=== PATIENT | male | born 1985 | race Caucasian/White ===

== ENCOUNTER 2016-06-18 21:58 | Emergency (ER) | payer SELFPAY ==
[~2016-06-18] VITALS: Ht 165.1 cm; Wt 52.2 kg
[~2016-06-18 21:58] MED LIST: AC325T PO; AMOX500C2 PO; BENZ100C8 PO; CEFU500T5 PO; CEPH500C PO; CPR500T PO; CYCL10TA9 PO; DOXY100C2 PO; HYDR-757 PO; IBP800T PO; LEVO500T69 PO; NAPR-243 PO; NAPR550T PO; ONDA4TAB8 PO; PRD20T PO; PRM25T PO; TRM50T PO
[2016-06-18] MEDS ORDERED: ASPIRIN 81 MG CHEW (CHILDREN'S ASA) PO ONE (23:00)
[2016-06-18 23:27] LABS: BASOPHILS % (AUTO) 0 % (0-10); EOSINOPHILS # (AUTO) 0.1 10^3/uL (0.0-0.3); EOSINOPHILS % (AUTO) 1 % (0-10); LYMPHOCYTES # (AUTO) 3.1 X 10^3 (1.0-4.0); LYMPHOCYTES % (AUTO) 32 % (12-44); MEAN CORPUSCULAR HEMOGLOBIN 30 PG (25-34); MEAN CORPUSCULAR HGB CONC 35 G/DL (32-36); MEAN CORPUSCULAR VOLUME 87 FL (80-99); MEAN PLATELET VOLUME 10.4 FL (7.4-10.4); MONOCYTES # (AUTO) 0.8 X 10^3 (0.0-1.0); MONOCYTES % (AUTO) 8 % (0-12); NEUTROPHILS # (AUTO) 5.6 X 10^3 (1.8-7.8); NEUTROPHILS % (AUTO) 58 % (42-75); PLATELET COUNT 144 10^3/uL (130-400); RED BLOOD COUNT 5.45 10^6/uL (4.35-5.85); RED CELL DISTRIBUTION WIDTH 14.4 % (10.0-14.5); WHITE BLOOD COUNT 9.6 10^3/uL (4.3-11.0)
[2016-06-18] MEDS ORDERED: KETOROLAC 30 MG/ML VIAL IVP ONE (23:45)
[2016-06-18 23:54] LABS: ALANINE AMINOTRANSFERASE 17 U/L (0-55); ALBUMIN 4.2 G/DL (3.2-4.5); ANION GAP 12 MMOL/L (5-14); ASPARTATE AMINO TRANSFERASE 25 U/L (5-34); BILIRUBIN,TOTAL 0.3 MG/DL (0.1-1.0); BLOOD UREA NITROGEN 20 MG/DL (7-18); BUN/CREATININE RATIO 25; CALCIUM 9.1 MG/DL (8.5-10.1); CARBON DIOXIDE 24 MMOL/L (21-32); CHLORIDE 105 MMOL/L (98-107); GFR ESTIMATED > 60; GLUCOSE 88 MG/DL (70-105); MAGNESIUM 2.6 MG/DL (1.8-2.4); POTASSIUM 3.7 MMOL/L (3.6-5.0); SODIUM 141 MMOL/L (135-145); TOTAL PROTEIN 7.3 G/DL (6.4-8.2)
[2016-06-19] LABS: MYOGLOBIN SERUM 30.3 NG/ML (10.0-92.0)
[2016-06-19] MEDS ORDERED: PRD20T PO (00:47)
--- NOTE | 2016-06-19 00:48 | ED Chest Pain ---
General Chief Complaint: Chest Pain Stated Complaint: CHEAT PAIN Nursing Triage Note: c/o left sided chest pain x 2 weeks. Denies fever, chills, soa, cough. Pt in no acute distress. Nursing Sepsis Screen: No Definite Risk Source: patient Exam Limitations: no limitations History of Present Illness Time seen by provider: 22:45 Initial Comments This 31-year-old gentleman presents to the emergency room with complaints of left central chest. Worsening over the past few weeks. It tends to happen only at home when he is at rest. 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 Pain is not worse with exertion and actually improves at work. He reports pain with deep inspiration. He denies any other symptoms such as cough or fever. He does smoke. Denies drug or alcohol use. Allergies and Home Medications Allergies Coded Allergies: No Known Drug Allergies (Unverified , 02/21/09) Home Medications Prednisone 20 Mg Tab #3 20 MG PO DAILY Prescribed by: JULIUS KIRBY on 06/19/16 0047 Review of Systems Constitutional: no symptoms reported EENTM: No Symptoms Reported Respiratory: See HPI Cardiovascular: No Symptoms Reported Gastrointestinal: No Symptoms Reported Genitourinary: No Symptoms Reported Musculoskeletal: see HPI Skin: no symptoms reported Psychiatric/Neurological: No Symptoms Reported Endocrine: No Symptoms Reported Past Shvbpcf-Yebzqh-Wryzjm Hx Patient Social History Alcohol Use: Denies Use Recreational Drug Use: No Smoking Status: Current Everyday Smoker Type Used: Cigarettes Recent Foreign Travel: No Contact w/Someone Who Travel: No Recent Infectious Disease Expo: No Recent Hopitalizations: No Immunizations Up To Date Date of Influenza Vaccine: Jan 29, 2013 Seasonal Allergies Seasonal Allergies: No Surgeries HX Surgeries: Yes (CRANIAL CORRECTIVE SURGERY--"BORN WITHOUT A SOFT SPOT") Respiratory Hx Respiratory Disorders: No Cardiovascular Hx Cardiac Disorders: No Neurological Hx Neurological Disorders: Yes Neurological Disorders: Headaches /Migraines Genitourinary Hx Genitourinary Disorders: No Gastrointestinal Hx Gastrointestinal Disorders: No Musculoskeletal Hx Musculoskeletal Disorders: No Endocrine Hx Endocrine Disorders: No HEENT HX ENT Disorders: No Cancer Hx Cancer: No Psychosocial Hx Psychiatric Problems: No Integumentary HX Skin/Integumentary Disorder: No Blood Transfusions Hx Blood Disorders: No Adverse Reaction to a Blood Tr: No Family Medical History Significant Family History: No Pertinent Family Hx (Adopted) Physical Exam Vital Signs Vital Sign - Last 12Hours 06/18/16 06/19/16 22:40 00:56 Temp 97.5 Pulse 86 Resp 16 B/P 136/92 Pulse Ox 98 O2 Delivery Room Air Capillary Refill : Less Than 3 Seconds General Appearance: No Apparent Distress WD/WN HEENT: PERRL/EOMI Normal ENT Inspection Neck: Normal Inspection Respiratory: No Accessory Muscle Use No Respiratory Distress Other (Left chest tenderness to palpation. 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 Norm as Tested Skin: Normal Color Warm/Dry Progress/Results/Core Measures Results/Orders Lab Results Laboratory Tests Test 06/18/16 23:18 Range/Units Activated Partial Thromboplast Time 26 24-35 SEC Alanine Aminotransferase (ALT/SGPT) 17 0-55 U/L Albumin 4.2 3.2-4.5 G/DL Alkaline Phosphatase 60 40-136 U/L Anion Gap 12 5-14 MMOL/L Aspartate Amino Transf (AST/SGOT) 25 5-34 U/L BUN/Creatinine Ratio 25 Basophils # (Auto) 0.0 0.0-0.1 10^3/uL Basophils (%) (Auto) 0 0-10 % Blood Urea Nitrogen 20 H 7-18 MG/DL C-Reactive Protein High Sensitivity 0.15 0.00-0.50 MG/DL Calcium Level 9.1 8.5-10.1 MG/DL Carbon Dioxide Level 24 21-32 MMOL/L Chloride Level 105 98-107 MMOL/L Creatinine 0.80 0.60-1.30 MG/DL Eosinophils # (Auto) 0.1 0.0-0.3 10^3/uL Eosinophils (%) (Auto) 1 0-10 % Erythrocyte Sedimentation Rate 1 0-15 MM/HR Estimat Glomerular Filtration Rate > 60 Glucose Level 88 70-105 MG/DL Hematocrit 47 40-54 % Hemoglobin 16.4 13.3-17.7 G/DL INR Comment 1.0 0.8-1.4 Lymphocytes # (Auto) 3.1 1.0-4.0 X 10^3 Lymphocytes (%) (Auto) 32 12-44 % Magnesium Level 2.6 H 1.8-2.4 MG/DL Mean Corpuscular Hemoglobin 30 25-34 PG Mean Corpuscular Hemoglobin Concent 35 32-36 G/DL Mean Corpuscular Volume 87 80-99 FL Mean Platelet Volume 10.4 7.4-10.4 FL Monocytes # (Auto) 0.8 0.0-1.0 X 10^3 Monocytes (%) (Auto) 8 0-12 % Myoglobin 30.3 10.0-92.0 NG/ML Neutrophils # (Auto) 5.6 1.8-7.8 X 10^3 Neutrophils (%) (Auto) 58 42-75 % Platelet Count 144 130-400 10^3/uL Potassium Level 3.7 3.6-5.0 MMOL/L Prothrombin Time 13.0 12.2-14.7 SEC Red Blood Count 5.45 4.35-5.85 10^6/uL Red Cell Distribution Width 14.4 10.0-14.5 % Sodium Level 141 135-145 MMOL/L Total Bilirubin 0.3 0.1-1.0 MG/DL Total Protein 7.3 6.4-8.2 G/DL Troponin I < 0.30 <0.30 NG/ML White Blood Count 9.6 4.3-11.0 10^3/uL My Orders Orders-JULIUS GENAO MD Ekg Tracing (06/18/16 22:45) Cbc With Automated Diff (06/18/16 22:57) Magnesium (06/18/16 22:57) Cardiac Profile 1 (06/18/16 22:57) Comprehensive Metabolic Panel (06/18/16 22:57) Myoglobin Serum (06/18/16 22:57) Protime With Inr (06/18/16 22:57) Partial Thromboplastin Time (06/18/16 22:57) O2 (06/18/16 22:57) Monitor-Rhythm Ecg Trace Only (06/18/16 22:57) Aspirin Chewable Tablet (Baby Aspirin Ch (06/18/16 23:00) Saline Lock/Iv-Start (06/18/16 22:57) Hs C Reactive Protein (06/18/16 22:57) Erythrocyte Sedimentation Rate (06/18/16 22:57) Chest Pa/Lat (2 View) (06/18/16 23:05) Ketorolac Injection (Toradol Injection) (06/18/16 23:45) Medications Given in ED Vital Signs/I&O Vital Sign - Last 12Hours 06/18/16 06/18/16 06/18/16 06/19/16 22:40 23:03 23:12 00:06 Temp 97.5 97.5 97.5 Pulse 86 Resp 16 B/P 136/92 O2 Delivery Room Air Room Air 06/19/16 00:56 Temp 97.5 Pulse 82 Resp 16 Pulse Ox 98 Blood Pressure Mean: 107 Progress Note : Progress Note Patient was treated with Toradol which improved his pain and he fell into a deep sleep. Workup was otherwise unremarkable. ECG Initial ECG Impression Date: Jun 18, 2016 Initial ECG Impression Time: 22:50 Initial ECG Rate: 66 Initial ECG Rhythm: Normal Sinus Comment Normal sinus rhythm. Borderline ST changes in numerous leads likely represents juvenile pattern. Does not meet criteria for pathologic ST elevation. No abnormal intervals or axis deviation. Diagnostic Imaging Diagonstic Imaging: Xray Plain Films/CT/US/NM/MRI: chest Comments Two-view chest x-ray viewed by me. Report not yet available. No acute abnormalities appreciated. Departure Impression Impression: Primary Impression: Atypical chest pain Additional Impression: Pleuritis Disposition: 01 HOME, SELF-CARE Condition: Improved Departure-Patient Inst. Decision time for Depature: 00:35 Referrals: [facility] (PCP/Family) Primary Care Physician Patient Instructions: Chest Pain That Is Not Caused by the Heart (DC), Pleuritic Chest Pain Add. Discharge Instructions: You may take ibuprofen up to 400 mg every 6 hours as needed for pain. Add Tylenol up to 650 mg every 4 hours as needed for additional pain relief. Follow -up with your primary care provider later this week. Return to care if symptoms worsen. All discharge instructions reviewed with patient and/or family. Voiced understanding. Scripts Prednisone 20 Mg Tab20 Mg PO DAILY #3 TAB Prov:JULIUS GENAO MD 06/19/16 JULIUS GENAO MD Jun 19, 2016 00:47
[2016-06-19 00:56] VITALS: BP 132/82
--- NOTE | 2016-06-19 07:23 | Diagnostic Imaging Report ---
INDICATION: Chest pain x2 weeks. Comparison with 07/07/2012. FINDINGS: The lungs are well-aerated and clear. The heart is not enlarged. No hilar adenopathy. No evidence of pneumothorax or pleural effusion. No bony abnormalities. IMPRESSION: Normal PA and lateral chest. Dictated by: Dictated on workstation # [id number]
== END 2016-06-19 00:56 | disposition home or self-care (01) ==
LOC: EDUNIT# 21:58 → ER 22:02
DX: R07.81 Pleurodynia (principal); F17.210 Nicotine dependence, cigarettes, uncomplicated
CPT/HCPCS: 36415; 71020; 80053; 83735; 83874; 84484; 85025; 85610; 85652; 85730; 86141; 93005; 93041; 96374

== ENCOUNTER 2017-09-03 18:15 | Emergency (ER) | payer SELFPAY ==
[~2017-09-03] VITALS: Ht 162.6 cm; Wt 50.3 kg
--- OUTSIDE RECORDS SUMMARY | 2017-09-03 18:22 | XMS REPORT ---
Author ALIYAH Garcia Organization [employer] Address Unknown Phone Unavailable Care Team Providers Care Qc Scientist Name Role Phone ALIYAH ARENAS CP Unavailable Allergies, Adverse Reactions, Alerts Substance Reaction Event Type Robitussin Cold/Congestion hives Drug Allergy Problems Problem Type Condition Code Onset Dates Condition Status Assessment Sinusitis J32.9 Active Medications Medication Code System Code Instructions Start Date End Date Status Dosage Amoxicillin [facility] [address]-36 500 MG Orally 3 times a day Mar 10, 2015 Mar 20, 2015 1 tablet Ibuprofen [facility] [address]-80 800 MG Orally Three times a day Mar 10, 2015 Apr 09, 2015 1 tablet Flonase [facility] [address]-27 50 MCG/ACT Nasally 2 times a day Mar 10, 2015 1 spray in each nostril Procedures Procedure Coding System Code Date Office Visit, New Pt., Level 3 CPT-4 21672 Mar 10, 2015 Vital Signs Date/Time: Mar 10, 2015 Temperature 98.2 F Weight 116.4 lbs Height 65 in BMI 19.37 Index Blood Pressure Diastolic 82 mmHg Blood Pressure Systolic 116 mmHg Cardiac Monitoring Heart Rate 102 bpm Results No Known Results Summary Purpose [employer] Submission
--- OUTSIDE RECORDS SUMMARY | 2017-09-03 18:23 | XMS REPORT | Continuity of Care Document ---
Author Author [facility] Organization [facility] Address Unknown Phone Unavailable Allergies Active Description Code Type Severity Reaction Onset Reported/Identified Relationship to Patient Clinical Status Yes No Known Drug Allergies [id number] Drug Allergy Mild N/A 02/21/2009 Medications There is no data. Problems Date Dx Coded Attending Type Code Diagnosis Diagnosed By 09/17/2009 Ot 847.2 09/17/2009 Ot 959.19 09/17/2009 Ot E000.8 09/17/2009 Ot E029.9 09/17/2009 Ot E927.8 04/25/2010 Ot 558.9 NONINF GASTROENTERIT NEC 04/25/2010 Ot 787.03 VOMITING ALONE 07/29/2010 Ot 465.9 ACUTE URI NOS 07/29/2010 Ot 786.2 COUGH 05/06/2011 Ot 490 BRONCHITIS NOS 05/06/2011 Ot 786.2 COUGH 08/06/2011 Ot 733.6 TIETZE'S DISEASE 08/06/2011 Ot 786.50 CHEST PAIN NOS 01/20/2012 Ot 692.9 DERMATITIS NOS 01/20/2012 Ot 782.1 NONSPECIF SKIN ERUPT NEC 07/07/2012 Ot 423.9 PERICARDIAL DISEASE NOS 07/07/2012 Ot 786.50 CHEST PAIN NOS 12/01/2012 PEDRO REYES DO Ot 599.0 URIN TRACT INFECTION NOS 12/01/2012 PEDRO REYES DO Ot 599.70 HEMATURIA, UNSPECIFIED 04/08/2013 RAEANN HARRISON Ot 346.90 MIGRAINE UNSPECIFIED W/O INTRACT MGRN W/ 04/08/2013 RAEANN HARRISON Ot 784.0 HEADACHE 09/10/2013 EDUARDO TANG EMD TEACHER Ot 724.2 LUMBAGO 08/24/2014 RAEANN HARRISON Ot 461.9 ACUTE SINUSITIS NOS 08/24/2014 RAEANN HARRISON Ot 786.2 COUGH 04/25/2015 BIRGIT GODINEZ, JULIUS Lynn Ot F17.210 NICOTINE DEPENDENCE, CIGARETTES, UNCOMPL 04/25/2015 BIRGIT GODINEZ, JULIUS Lynn Ot R11.2 NAUSEA WITH VOMITING, UNSPECIFIED 04/25/2015 BIRGIT GODINEZ, JULIUS Lynn Ot R51 HEADACHE 09/22/2015 RAEANN HARRISON Ot F17.210 NICOTINE DEPENDENCE, CIGARETTES, UNCOMPL 09/22/2015 RAEANN HARRISON Ot G43.909 MIGRAINE, UNSP, NOT INTRACTABLE, WITHOUT 09/23/2015 RAEANN HARRISON Ot G43.909 MIGRAINE, UNSP, NOT INTRACTABLE, WITHOUT 09/23/2015 RAEANN HARRISON Ot F17.210 NICOTINE DEPENDENCE, CIGARETTES, UNCOMPL 09/23/2015 RAEANN HARRISON Ot G43.909 MIGRAINE, UNSP, NOT INTRACTABLE, WITHOUT 09/28/2015 RAEANN HARRISON Ot F17.210 NICOTINE DEPENDENCE, CIGARETTES, UNCOMPL 09/28/2015 RAEANN HARRISON Ot G43.909 MIGRAINE, UNSP, NOT INTRACTABLE, WITHOUT 10/14/2015 MADL, BETHANIE L SAPPHIRE STYLUS GRINDER Ot R51 HEADACHE 10/14/2015 MADL, BETHANIE L SAPPHIRE STYLUS GRINDER Ot R51 HEADACHE 10/16/2015 RAEANN HARRISON Ot F17.210 NICOTINE DEPENDENCE, CIGARETTES, UNCOMPL 10/16/2015 RAEANN HARRISON Ot G43.909 MIGRAINE, UNSP, NOT INTRACTABLE, WITHOUT 10/22/2015 MADL, BETHANIE L SAPPHIRE STYLUS GRINDER Ot R51 HEADACHE 01/05/2016 MADL, BETHANIE L SAPPHIRE STYLUS GRINDER Ot R51 HEADACHE 06/18/2016 MADL, BETHANIE L SAPPHIRE STYLUS GRINDER Ot R51 HEADACHE 06/19/2016 BIRGIT GODINEZ, JULIUS Lynn Ot F17.210 NICOTINE DEPENDENCE, CIGARETTES, UNCOMPL 06/19/2016 BIRGIT GODINEZ, JULIUS Lynn Ot R07.81 PLEURODYNIA 06/19/2016 BIRGIT GODINEZ, JULIUS Lynn Ot R07.89 OTHER CHEST PAIN 06/24/2016 JULIUS GENAO MD Ot F17.210 NICOTINE DEPENDENCE, CIGARETTES, UNCOMPL 06/24/2016 BIRGIT GODINEZ, JULIUS Lynn Ot R07.81 PLEURODYNIA 06/24/2016 JULIUS GENAO MD Ot R07.89 OTHER CHEST PAIN 06/27/2016 JIN BETHANIE Nik GOODEN Ot R51 HEADACHE Procedures There is no data. Results Test Result Range Complete blood count (CBC) with automated white blood cell (WBC) differential - 06/18/16 23:18 Blood leukocytes automated count (number/volume) 9.6 10*3/uL 4.3-11.0 Blood erythrocytes automated count (number/volume) 5.45 10*6/uL 4.35-5.85 Venous blood hemoglobin measurement (mass/volume) 16.4 g/dL 13.3-17.7 Blood hematocrit (volume fraction) 47 % 40-54 Automated erythrocyte mean corpuscular volume 87 [foz_us] 80-99 Automated erythrocyte mean corpuscular hemoglobin (mass per erythrocyte) 30 pg 25-34 Automated erythrocyte mean corpuscular hemoglobin concentration measurement ( mass/volume) 35 g/dL 32-36 Automated erythrocyte distribution width ratio 14.4 % 10.0-14.5 Automated blood platelet count (count/volume) 144 10*3/uL 130-400 Automated blood platelet mean volume measurement 10.4 [foz_us] 7.4-10.4 Automated blood neutrophils/100 leukocytes 58 % 42-75 Automated blood lymphocytes/100 leukocytes 32 % 12-44 Blood monocytes/100 leukocytes 8 % 0-12 Automated blood eosinophils/100 leukocytes 1 % 0-10 Automated blood basophils/100 leukocytes 0 % 0-10 Blood neutrophils automated count (number/volume) 5.6 10*3 1.8-7.8 Blood lymphocytes automated count (number/volume) 3.1 10*3 1.0-4.0 Blood monocytes automated count (number/volume) 0.8 10*3 0.0-1.0 Automated eosinophil count 0.1 10*3/uL 0.0-0.3 Automated blood basophil count (count/volume) 0.0 10*3/uL 0.0-0.1 PT panel in platelet poor plasma by coagulation assay - 06/18/16 23:18 Prothrombin time (PT) in platelet poor plasma by coagulation assay 13.0 s 12.2-14.7 INR in platelet poor plasma or blood by coagulation assay 1.0 0.8-1.4 Activated partial thromboplastin time (aPTT) in platelet poor plasma bycoagulation assay - 06/18/16 23:18 Activated partial thromboplastin time (aPTT) in platelet poor plasma bycoagulation assay 26 s 24-35 Erythrocyte sedimentation rate by westergren method - 06/18/16 23:18 Erythrocyte sedimentation rate by westergren method 1 mm 0-15 Serum or plasma C reactive protein measurement (mass/volume) - 06/18/16 23:18 Serum or plasma C reactive protein measurement (mass/volume) 0.15 mg /dL 0.00-0.50 Comprehensive metabolic panel - 06/18/16 23:18 Serum or plasma sodium measurement (moles/volume) 141 mmol/L 135-145 Serum or plasma potassium measurement (moles/volume) 3.7 mmol/L 3.6-5.0 Serum or plasma chloride measurement (moles/volume) 105 mmol/L 98-107 Carbon dioxide 24 mmol/L 21-32 Serum or plasma anion gap determination (moles/volume) 12 mmol/L 5-14 Serum or plasma urea nitrogen measurement (mass/volume) 20 mg/dL 7-18 Serum or plasma creatinine measurement (mass/volume) 0.80 mg/dL 0.60-1.30 Serum or plasma urea nitrogen/creatinine mass ratio 25 NRG Serum or plasma creatinine measurement with calculation of estimated glomerular filtration rate > NRG Serum or plasma glucose measurement (mass/volume) 88 mg/dL 70-105 Serum or plasma calcium measurement (mass/volume) 9.1 mg/dL 8.5-10.1 Serum or plasma total bilirubin measurement (mass/volume) 0.3 mg/dL 0.1-1.0 Serum or plasma alkaline phosphatase measurement (enzymatic activity/volume) 60 U/L 40-136 Serum or plasma aspartate aminotransferase measurement (enzymatic activity/ volume) 25 U/L 5-34 Serum or plasma alanine aminotransferase measurement (enzymatic activity/volume ) 17 U/L 0-55 Serum or plasma protein measurement (mass/volume) 7.3 g/dL 6.4-8.2 Serum or plasma albumin measurement (mass/volume) 4.2 g/dL 3.2-4.5 Magnesium - 06/18/16 23:18 Magnesium 2.6 mg/dL 1.8-2.4 Serum or plasma troponin i.cardiac measurement (mass/volume) - 06/18/16 23:18 Serum or plasma troponin i.cardiac measurement (mass/volume) < ng/ mL <0.30 Myoglobin, serum - 06/18/16 23:18 Myoglobin, serum 30.3 ng/mL 10.0-92.0 Encounters ACCT No. Visit Date/Time Discharge Status Pt. Type Provider Facility Loc./Unit Complaint [id number] 06/18/2016 22:02:00 06/19/2016 00:56:00 DIS Emergency JULIUS GENAO MD [facility] ER CHEAT PAIN [id number] 10/09/2015 13:53:00 10/09/2015 23:59:59 [facility] Outpatient BETHANIE ABDI [facility] RAD CHRONIC INTRACTABLE HEADACHE [id number] 09/22/2015 19:37:00 09/22/2015 23:37:00 DIS Emergency RAEANN HARRISON [facility] ER HEADACHE/DIZZINESS [id number] 04/25/2015 08:28:00 04/25/2015 12:59:00 DIS Emergency JULIUS GENAO MD [facility] ER HEADACHE [id number] 08/24/2014 21:35:00 08/24/2014 22:11:00 DIS Emergency RAEANN HARRISON [facility] ER FLU LIKE SYMPTOMS [id number] 09/10/2013 21:46:00 09/10/2013 21:58:00 DIS Emergency EDUARDO TANG APRN [facility] ER LOWER BACK PAIN [id number] 04/08/2013 17:19:00 04/08/2013 19:51:00 DIS Emergency RAEANN HARRISON [facility] ER HEADACHE [id number] 12/01/2012 06:25:00 12/01/2012 23:59:59 [facility] Emergency PEDRO REYES DO [facility] ER BLOOD IN URINE [id number] 07/07/2012 19:49:00 Document Registration [id number] 01/20/2012 18:08:00 Document Registration [id number] 08/06/2011 19:03:00 Document Registration [id number] 05/06/2011 03:00:00 Document Registration [id number] 07/29/2010 17:45:00 Document Registration [id number] 04/25/2010 17:04:00 Document Registration [id number] 09/16/2009 23:20:00 Document Registration [id number] 08/25/2014 02:24:33 [place] Document Registration [id number] 01/26/2017 08:10:00 01/26/2017 23:59:59 [facility] Outpatient MADL BETHANIE [facility]
--- OUTSIDE RECORDS SUMMARY | 2017-09-03 18:23 | XMS REPORT ---
Author ALIYAH Garcia Organization [employer] Address Unknown Phone Unavailable Care Team Providers Care Animal Bounty Hunter Name Role Phone ALIYAH ARENAS CP Unavailable Allergies, Adverse Reactions, Alerts Substance Reaction Event Type Robitussin Cold/Congestion hives Drug Allergy Problems Problem Type Condition Code Onset Dates Condition Status Assessment Left leg pain M79.605 Active Medications Medication Code System Code Instructions Start Date End Date Status Dosage Naproxen [facility] [address]-60 500 MG Orally every 12 hrs August 18, 2015 September 01, 2015 1 tablet as needed Cyclobenzaprine HCl [facility] [address]-42 10 mg Orally Three times a day prn muscle spasm August 18, 2015 August 25, 2015 1 tablet Procedures Procedure Coding System Code Date Office Visit, Est Pt., Level 3 CPT-4 76401 August 18, 2015 TORADOL (IM) 15 MG/ML (UP TO 15 MG) CPT-4 J1885 August 18, 2015 X-RAY EXAM OF FEMUR 2/> CPT-4 05244 August 18, 2015 THER/PROPH/DIAG INJ, SC/IM CPT-4 79122 August 18, 2015 Vital Signs Date/Time: August 18, 2015 Temperature 99.2 F Weight 113.5 lbs Height 65 in BMI 18.89 Index Blood Pressure Diastolic 82 mmHg Blood Pressure Systolic 126 mmHg Cardiac Monitoring Heart Rate 80 bpm Results No Known Results Summary Purpose [employer] Submission
[2017-09-03] MEDS ORDERED: KETOROLAC 60 MG/2 ML VIAL IM STA (20:22)
--- NOTE | 2017-09-03 20:42 | Diagnostic Imaging Report ---
INDICATION: Left-sided rib pain following injury. FINDINGS: There is no lung contusion, pneumothorax or hemothorax. There is no free air beneath the diaphragm. No cortical irregularity, abnormal lucencies or fracture pattern. IMPRESSION: Unremarkable frontal chest and left rib series. Dictated by: Dictated on workstation # [id number]
--- NOTE | 2017-09-03 20:50 | ED General ---
General Chief Complaint: Chest Wall/Rib Pain Stated Complaint: L SIDED RIB PAIN Nursing Triage Note: PT TO ED 10 W/ C/O LT SIDE RIB PAIN ONSET YESTERDAY AFTER WRESTLING W/ HIS SON. REPORTS HIS SON CAME DOWN ON HIS CHEST W/ HIS KNEE ET HEARD A POP Nursing Sepsis Screen: No Definite Risk History of Present Illness Date Seen by Provider: September 03, 2017 Time Seen by Provider: 20:15 Initial Comments 32-year-old male reports yesterday evening that he was wrestling with his son, he jumped down and landed on his left ribs with his knee. He felt and heard a pop in his left chest. Pain has been present in the left chest wall laterally since the incident. He denies using any analgesia for his pain. He increase smoking cigarettes to relieve the symptoms. Timing/Duration: 12-24 Hours Associated Systoms: Chest Pain (chest wall pain, tender to palpation) Allergies and Home Medications Allergies Coded Allergies: No Known Drug Allergies (Unverified , 02/21/09) Home Medications Prednisone 20 Mg Tab, 20 MG PO DAILY Prescribed by: JULIUS KIRBY on 06/19/16 0047 Patient Home Medication List Home Medication List Reviewed: Yes Review of Systems Constitutional: no symptoms reported, see HPI Respiratory: no symptoms reported, see HPI; No dyspnea on exertion, No short of breath Cardiovascular: see HPI All Other Systems Reviewed Negative Unless Noted: Yes Past Ygprfln-Rbecup-Pjksbj Hx Past Med/Social Hx: Reviewed Nursing Past Med/Soc Hx Patient Social History Alcohol Use: Denies Use Recreational Drug Use: No Smoking Status: Current Everyday Smoker Type Used: Cigarettes 2nd Hand Smoke Exposure: Yes Recent Foreign Travel: No Contact w/Someone Who Travel: No Recent Infectious Disease Expo: No Recent Hopitalizations: No Physical Abuse: No Sexual Abuse: No Mistreated: No Fear: No Immunizations Up To Date Date of Influenza Vaccine: Jan 29, 2013 Seasonal Allergies Seasonal Allergies: No Past Medical History Surgeries: Yes (CRANIAL CORRECTIVE SURGERY--"BORN WITHOUT A SOFT SPOT") Respiratory: No Cardiac: No Neurological: Yes Headaches /Migraines Gastrointestinal: No Musculoskeletal: No Endocrine: No Cancer: No Psychosocial: No Nursing Suicide Risk Score: 0 Integumentary: No Blood Disorders: No Adverse Reaction/Blood Tranf: No Family Medical History No Pertinent Family Hx Physical Exam Vital Signs Vital Signs - First Documented 09/03/17 20:06 Temp 97.5 Pulse 80 Resp 20 B/P (MAP) 127/96 (106) Pulse Ox 99 O2 Delivery Room Air Capillary Refill : Less Than 3 Seconds General Appearance: No Apparent Distress, WD/WN Neck: Full Range of Motion, Normal Inspection, Non Tender, Supple Respiratory: Lungs Clear, Normal Breath Sounds, Other (tender to palpation bilateral lower ribs on the left) Cardiovascular: Regular Rate, Rhythm, No Murmur, Normal Peripheral Pulses Gastrointestinal: Normal Bowel Sounds, Non Tender, Soft Neurologic/Psychiatric: Oriented x3, No Motor/Sensory Deficits, Normal Mood/ Affect Progress/Results/Core Measures Suspected Sepsis Recent Fever Within 48 Hours: No Infection Criteria Present: None New/Unexplained Altered Menta: No Sepsis Screen: No Definite Risk SIRS Temperature:97.5 Pulse: 80 Respiratory Rate: 20 Blood Pressure 127 /96 Mean: 106 Results/Orders My Orders Orders - KIKE CARDOZA Ribs, Left 2-3 Views (09/03/17 20:21) Ketorolac Injection (Toradol Injection) (09/03/17 20:22) Rx-Tramadol Hcl (Rx-Ultram) (09/03/17 21:17) Vital Signs/I&O 09/03/17 20:06 Temp 97.5 Pulse 80 Resp 20 B/P (MAP) 127/96 (106) Pulse Ox 99 O2 Delivery Room Air Capillary Refill : Less Than 3 Seconds Blood Pressure Mean: 106 Progress Note : Time: 20:15 Progress Note Initial evaluation completed, recommended x-rays of the left ribs. Ketorolac 60 mg IM. 2100 x-ray results showing no acute rib fractures or abnormalities. Discharge instructions and return precautions reviewed with the patient. Diagnostic Imaging Diagonstic Imaging: Xray Plain Films/CT/US/NM/MRI: chest Comments NAME: JULIUS MACIEL Nico MED REC#: [id number] PT STATUS: REG ER : 1985 PHYSICIAN: KIKE CARDOZA ADMIT DATE: 09/03/17/ER Draft Date of Exam:09/03/17 RIBS, LEFT 2-3 VIEWS INDICATION: Left-sided rib pain following injury. FINDINGS: There is no lung contusion, pneumothorax or hemothorax. There is no free air beneath the diaphragm. No cortical irregularity, abnormal lucencies or fracture pattern. IMPRESSION: Unremarkable frontal chest and left rib series. Dictated on workstation # [id number] Dict: 09/03/172038 Trans: 09/03/172040 SELENA [id number] Interpreted by: LAVERNE COOPER Electronically signed by: Reviewed: Reviewed by Me Departure Impression Primary Impression: Rib pain Additional Impression: Contusion of left chest wall Qualified Codes: S20.212A - Contusion of left front wall of thorax, initial encounter Disposition: HOME, SELF-CARE Condition: Stable Departure-Patient Inst. Decision time for Depature: 21:15 Referrals: [facility] [place] (PCP/Family) Primary Care Physician Patient Instructions: CHEST CONTUSION, Costochondritis (DC) Add. Discharge Instructions: Alternate heat and ice to left chest wall. You may alternate Tylenol 650 mg and ibuprofen 600 mg every 4 hours for pain. Use Ultram for more significant pain. While awake, every hour take deep breaths, cough and turn. Follow-up with your primary care provider in 2-3 days if symptoms are not improving or worsen. Return to emergency department if symptoms worsen, difficulty breathing, or new problems. All discharge instructions reviewed with patient and/or family. Voiced understanding. KIKE CARDOZA September 03, 2017 20:50
[2017-09-03] MEDS ORDERED: RX-TRAMADOL 50 MG (ULTRAM) TAB PPK#4 PO STA (21:17)
[2017-09-03 21:30] VITALS: BP 119/86
== END 2017-09-03 21:30 | disposition home or self-care (01) ==
LOC: EDUNIT# 18:15 → ER 18:18
DX: S20.212A Contusion of left front wall of thorax, initial encounter (principal); G43.909 Migraine, unspecified, not intractable, without status migrainosus; F17.210 Nicotine dependence, cigarettes, uncomplicated; Z79.52 Long term (current) use of systemic steroids; Z98.890 Other specified postprocedural states; W51.XXXA Accidental striking against or bumped into by another person, initial encounter; Y93.72 Activity, wrestling
CPT/HCPCS: 71100; 96372

== ENCOUNTER 2018-05-05 15:34 | Emergency (ER) | payer SELFPAY | END 2018-05-05 17:12 | disposition home or self-care (01) | LOC: ER 15:34 ==

== ENCOUNTER 2018-09-06 16:51 | Emergency (ER) | payer SELFPAY ==
[~2018-09-06] VITALS: Ht 162.6 cm; Wt 51.1 kg
[2018-09-06] MEDS ORDERED: NS IV 1000 ML 1,000 ML IV SCH (17:00)
[2018-09-06] MEDS ORDERED: KETOROLAC 30 MG/ML VIAL IVP ONE (17:00)
[2018-09-06] MEDS ORDERED: ONDANSETRON 4 MG/2 ML (SDV) Z0FRAN IVP ONE (17:15)
[2018-09-06 17:17] LABS: BILIRUBIN,URINE NEGATIVE (NEGATIVE); CLARITY,URINE CLEAR; COLOR,URINE YELLOW; GLUCOSE, URINE (UA) NEGATIVE (NEGATIVE); KETONES,URINE 1+ (NEGATIVE); LEUKOCYTE ESTERASE ,URINE 1+ (NEGATIVE); NITRITE,URINE NEGATIVE (NEGATIVE); PH,URINE 6 (5-9); PROTEIN,URINE 2+ (NEGATIVE); UROBILINOGEN,URINE NORMAL (NORMAL)
[2018-09-06 17:18] LABS: BASOPHILS % (AUTO) 0 % (0-10); EOSINOPHILS # (AUTO) 0.1 10^3/uL (0.0-0.3); EOSINOPHILS % (AUTO) 0 % (0-10); HEMATOCRIT 47 % (40-54); HEMOGLOBIN 16.4 G/DL (13.3-17.7); LYMPHOCYTES # (AUTO) 2.5 X 10^3 (1.0-4.0); LYMPHOCYTES % (AUTO) 22 % (12-44); MEAN CORPUSCULAR HEMOGLOBIN 30 PG (25-34); MEAN CORPUSCULAR HGB CONC 35 G/DL (32-36); MEAN CORPUSCULAR VOLUME 86 FL (80-99); MEAN PLATELET VOLUME 10.1 FL (7.4-10.4); MONOCYTES # (AUTO) 1.3 X 10^3 (0.0-1.0); MONOCYTES % (AUTO) 11 % (0-12); NEUTROPHILS # (AUTO) 7.8 X 10^3 (1.8-7.8); NEUTROPHILS % (AUTO) 67 % (42-75); PLATELET COUNT 152 10^3/uL (130-400); RED CELL DISTRIBUTION WIDTH 13.9 % (10.0-14.5); WHITE BLOOD COUNT 11.7 10^3/uL (4.3-11.0)
--- NOTE | 2018-09-06 17:22 | ED Back Pain ---
General Chief Complaint: Back Problems Stated Complaint: R SIDE PAIN Nursing Triage Note: PT AMBULATES TO ROOM 10 PT CO OF R FLANK PAIN, SUDDEN ONSET LAST PM. STATES HAS N/V TODAY Nursing Sepsis Screen: No Definite Risk Source of Information: Patient Exam Limitations: No Limitations History of Present Illness Date Seen by Provider: September 06, 2018 Time Seen by Provider: 17:00 Initial Comments 33-year-old male who presents to the emergency room with complaints of right flank pain that radiates around to the right lower quadrant abdominal pain. He reports that it was sudden onset last night associated nausea and vomiting throughout the day. He denies fevers. Denies history of kidney stones. Location: Other (right flank) Timing/Duration: 12-24 Hours Associated Symptoms: denies symptoms Allergies and Home Medications Allergies Coded Allergies: No Known Drug Allergies (Unverified , 02/21/09) Home Medications Hydrocodone Bit/Acetaminophen 1 Tab Tab, 1 EACH PO Q4-6HR PRN for PAIN-MODERATE Prescribed by: LELO SOLORIO on 09/06/181818 Ondansetron 4 Mg Tab.rapdis, 4 MG PO Q4H PRN for NAUSEA/VOMITING-2ND LINE Prescribed by: LELO SOLORIO on 09/06/181818 Prednisone 20 Mg Tab, 20 MG PO DAILY Prescribed by: JULIUS KIRBY on 06/19/16 0047 Sulfamethoxazole/Trimethoprim 1 Each Tablet, 1 EACH PO BID PRN Prescribed by: LELO SOLORIO on 09/06/181818 Patient Home Medication List Home Medication List Reviewed: Yes Review of Systems Constitutional: see HPI; No chills, No fever Gastrointestinal: see HPI, abdominal pain (RLQ), nausea, vomiting Genitourinary: see HPI, pain (right flank pain) All Other Systems Reviewed Negative Unless Noted: Yes Past Semhvvh-Mumudz-Pmlops Hx Past Med/Social Hx: Reviewed Nursing Past Med/Soc Hx Patient Social History Type Used: Cigarettes 2nd Hand Smoke Exposure: Yes Recent Foreign Travel: No Contact w/Someone Who Travel: No Recent Infectious Disease Expo: No Recent Hopitalizations: No Immunizations Up To Date Date of Influenza Vaccine: Jan 29, 2013 Seasonal Allergies Seasonal Allergies: No Past Medical History Surgeries: Yes (CRANIAL CORRECTIVE SURGERY--"BORN WITHOUT A SOFT SPOT") Respiratory: No Cardiac: No Neurological: Yes Headaches /Migraines Gastrointestinal: No Musculoskeletal: No Endocrine: No Cancer: No Psychosocial: No Integumentary: No Blood Disorders: No Adverse Reaction/Blood Tranf: No Family Medical History Reviewed Nursing Family Hx No Pertinent Family Hx Physical Exam Vital Signs Vital Signs - First Documented 09/06/18 16:55 Temp 97.9 Pulse 97 Resp 18 B/P (MAP) 112/96 (101) Pulse Ox 97 Capillary Refill : Less Than 3 Seconds Height, Weight, BMI Height: 5'4.00" Weight: 112lbs. 12oz. [id number]; 19.74 BMI Method:Stated General Appearance: No Apparent Distress, WD/WN Cardiovascular: Regular Rate, Rhythm, No Edema, No Gallop, No JVD, No Murmur, Normal Peripheral Pulses Respiratory: Chest Non Tender, Lungs Clear, Normal Breath Sounds, No Accessory Muscle Use, No Respiratory Distress, Accessory Muscle Use Gastrointestinal: Normal Bowel Sounds, No Organomegaly, No Pulsatile Mass, Non Tender, Soft Back: Normal Inspection, No Vertebral Tenderness, CVA Tenderness (R) Extremity: Normal Capillary Refill Neurologic/Psychiatric: Alert, Oriented x3, Normal Mood/Affect Progress/Results/Core Measures Results/Orders Lab Results Laboratory Tests Test 09/06/18 17:00 09/06/18 17:05 Range/Units White Blood Count 11.7 H 4.3-11.0 10^3/uL Red Blood Count 5.40 4.35-5.85 10^6/uL Hemoglobin 16.4 13.3-17.7 G/DL Hematocrit 47 40-54 % Mean Corpuscular Volume 86 80-99 FL Mean Corpuscular Hemoglobin 30 25-34 PG Mean Corpuscular Hemoglobin Concent 35 32-36 G/DL Red Cell Distribution Width 13.9 10.0-14.5 % Platelet Count 152 130-400 10^3/uL Mean Platelet Volume 10.1 7.4-10.4 FL Neutrophils (%) (Auto) 67 42-75 % Lymphocytes (%) (Auto) 22 12-44 % Monocytes (%) (Auto) 11 0-12 % Eosinophils (%) (Auto) 0 0-10 % Basophils (%) (Auto) 0 0-10 % Neutrophils # (Auto) 7.8 1.8-7.8 X 10^3 Lymphocytes # (Auto) 2.5 1.0-4.0 X 10^3 Monocytes # (Auto) 1.3 H 0.0-1.0 X 10^3 Eosinophils # (Auto) 0.1 0.0-0.3 10^3/uL Basophils # (Auto) 0.0 0.0-0.1 10^3/uL Sodium Level 138 135-145 MMOL/L Potassium Level 3.9 3.6-5.0 MMOL/L Chloride Level 104 98-107 MMOL/L Carbon Dioxide Level 24 21-32 MMOL/L Anion Gap 10 5-14 MMOL/L Blood Urea Nitrogen 14 7-18 MG/DL Creatinine 1.16 0.60-1.30 MG/DL Estimat Glomerular Filtration Rate > 60 BUN/Creatinine Ratio 12 Glucose Level 99 70-105 MG/DL Calcium Level 9.4 8.5-10.1 MG/DL Corrected Calcium 9.2 8.5-10.1 MG/DL Total Bilirubin 0.9 0.1-1.0 MG/DL Aspartate Amino Transf (AST/SGOT) 17 5-34 U/L Alanine Aminotransferase (ALT/SGPT) 15 0-55 U/L Alkaline Phosphatase 70 40-136 U/L Total Protein 7.2 6.4-8.2 GM/DL Albumin 4.3 3.2-4.5 GM/DL Amylase Level 33 25-125 U/L Lipase 8 8-78 U/L Urine Color YELLOW Urine Clarity CLEAR Urine pH 6 5-9 Urine Specific [place] 1.020 1.016-1.022 Urine Protein 2+ H NEGATIVE Urine Glucose (UA) NEGATIVE NEGATIVE Urine Ketones 1+ H NEGATIVE Urine Nitrite NEGATIVE NEGATIVE Urine Bilirubin NEGATIVE NEGATIVE Urine Urobilinogen NORMAL NORMAL MG/DL Urine Leukocyte Esterase 1+ H NEGATIVE Urine RBC (Auto) 5+ H NEGATIVE Urine RBC >100 H /HPF Urine WBC 10-25 H /HPF Urine Squamous Epithelial Cells 2-5 /HPF Urine Crystals NONE /LPF Urine Bacteria TRACE /HPF Urine Casts NONE /LPF Urine Mucus NEGATIVE /LPF Urine Culture Indicated YES Micro Results Microbiology 09/06/18 Urine Culture - Final, Complete NO GROWTH My Orders Orders - LELO SOLORIO Comprehensive Metabolic Panel (09/06/18 16:59) Lipase (09/06/18 16:59) Amylase (09/06/18 16:59) Ed Iv/Invasive Line Start (09/06/18 16:59) Cbc With Automated Diff (09/06/18 16:59) Ct Abd/Pelvis Wo(Kidney Stone) (09/06/18 16:59) Abdomen/Kub 1view (09/06/18 16:59) Ketorolac Injection (Toradol Injection) (09/06/18 17:00) Ns Iv 1000 Ml (Sodium Chloride 0.9%) (09/06/18 17:00) Ondansetron Injection (Zofran Injectio (09/06/18 17:15) Fentanyl Injection (Sublimaze Injection (09/06/18 17:45) Rx-Hydrocodone/Apap 5-325 Mg (Rx-Vicodin (09/06/18 18:45) Rx-Ondansetron Po (Rx-Zofran Po) (09/06/18 18:36) Sulfamethoxazole/Trimet Ds Tab (Bactrim (09/06/18 18:45) Iv Push Clinical Team Lead Ed (09/06/18 ) Medications Given in ED Vital Signs/I&O 09/06/18 09/06/18 16:55 18:37 Temp 97.9 Pulse 97 79 Resp 18 18 B/P (MAP) 112/96 (101) 110/84 (93) Pulse Ox 97 97 Blood Pressure Mean: 101 Progress Progress Note : Time: 18:16 Progress Note I have seen and evaluated the patient. I've informed him of his laboratory and imaging studies. He agrees with plan of care, plans for discharge, return precautions were given. Departure Impression Primary Impression: Kidney stone on right side Disposition: 01 HOME, SELF-CARE Condition: Stable/Unchanged Departure-Patient Inst. Decision time for Depature: 18:16 Referrals: [facility] [place]) Primary Care Physician LAURITA LARIOS MD Patient Instructions: Kidney Stones (DC) Add. Discharge Instructions: Take medications as directed. Follow-up with Dr. Larios calling tomorrow to schedule an appointment for further evaluation. Strain all urine and if you should pass a kidney stone take it with you to your appointment. Return back to the emergency room for worsening symptoms or concerns as needed. All discharge instructions reviewed with patient and/or family. Voiced understanding. Scripts Hydrocodone Bit/Acetaminophen (Hydrocodone/Acetaminophen 5/325mg Tablet) 1 Tab Tab 1 EACH PO Q4-6HR PRN for PAIN-MODERATE MDD 10 for 3 Days, #10 TAB Prov: LELO SOLORIO 09/06/18 Ondansetron (Ondansetron Odt) 4 Mg Tab.rapdis 4 MG PO Q4H PRN for NAUSEA/VOMITING-2ND LINE, #14 TAB Prov: LELO SOLORIO 09/06/18 Sulfamethoxazole/Trimethoprim (Bactrim Ds Tablet) 1 Each Tablet 1 EACH PO BID PRN for 7 Days, #14 TAB Prov: LELO SOLORIO 09/06/18 LELO SOLORIO September 06, 2018 17:22
--- NOTE | 2018-09-06 17:26 | Diagnostic Imaging Report ---
INDICATION: Right flank pain FINDINGS: AP view of the abdomen reveals an approximately 0.3 cm calculus medial to the right kidney which may reside within the renal collecting system or ureteropelvic junction. There is also a tiny calcification projected over the upper pole of the right kidney. There are calcified phleboliths in the right hemipelvis. IMPRESSION: Right nephrolithiasis with possible 0.3 cm calculus near the right ureteropelvic junction. Clinical correlation is recommended. Dictated by: Dictated on workstation # [id number]
[2018-09-06 17:31] LABS: BACTERIA,URINE TRACE /HPF; RBC,URINE >100 /HPF
[2018-09-06 17:38] LABS: ALANINE AMINOTRANSFERASE 15 U/L (0-55); ALBUMIN 4.3 GM/DL (3.2-4.5); ALKALINE PHOSPHATASE 70 U/L (40-136); AMYLASE 33 U/L (25-125); BILIRUBIN,TOTAL 0.9 MG/DL (0.1-1.0); BUN/CREATININE RATIO 12; CALCIUM 9.4 MG/DL (8.5-10.1); CARBON DIOXIDE 24 MMOL/L (21-32); CHLORIDE 104 MMOL/L (98-107); CREATININE SERUM 1.16 MG/DL (0.60-1.30); GFR ESTIMATED > 60; GLUCOSE 99 MG/DL (70-105); LIPASE 8 U/L (8-78); POTASSIUM 3.9 MMOL/L (3.6-5.0); SODIUM 138 MMOL/L (135-145); TOTAL PROTEIN 7.2 GM/DL (6.4-8.2)
--- NOTE | 2018-09-06 17:42 | Diagnostic Imaging Report ---
PROCEDURE: CT urinary tract, rule out kidney stone. TECHNIQUE: Multiple contiguous axial images were obtained through the abdomen and pelvis without the use of intravenous contrast. Auto Exposure Controls were utilized during the CT exam to meet ALARA standards for radiation dose reduction. INDICATION: Right flank pain. FINDINGS: There is a somewhat irregular nodular focus in the highest images through the lower lobe of the left lung. This is incompletely evaluated on the abdominal study. Unenhanced images of the liver and spleen reveal no focal abnormality. No gallbladder, pancreatic or definite adrenal gland abnormality is identified. There is punctate calcification in the upper pole of the right kidney with an approximately 0.4 cm calculus in the region of the proximal right ureter. In addition, there are several other faint punctate calcifications in both kidneys. There is no evidence of free fluid in the abdomen or pelvis. No appendiceal inflammation is identified. There is moderate amount of stool throughout the colon. Calcified phleboliths are noted in the right pelvis. IMPRESSION: 0.4 cm calculus at the right ureteropelvic junction without significant hydronephrosis. This may contribute to patient's symptoms. In addition, there are several other punctate nonobstructing calculi in both kidneys. Focal nodular region in the visualized left lower lobe. This is incompletely evaluated on the current study and could represent area of infiltrate. Followup chest radiograph would be useful to document resolution. Dictated by: Dictated on workstation # [id number]
[2018-09-06] MEDS ORDERED: fentaNYL INJECTION 100 MCG/2 ML AMP IVP ONE (17:45)
[2018-09-06] MEDS ORDERED: SULF1TAB35 PO (18:19)
[2018-09-06] MEDS ORDERED: ACHD5005 PO (18:19)
[2018-09-06] MEDS ORDERED: ONDA4TAB11 PO (18:19)
[2018-09-06] MEDS ORDERED: RX-ONDANSETRON 4 MG ODT (ZOFRAN) PPK #4 PO STA (18:36)
[2018-09-06 18:37] VITALS: BP 110/84
[2018-09-06] MEDS ORDERED: RX-HYDROCODONE/APAP 5/325 MG #4 TAB PK PO PRN (18:45)
[2018-09-06] MEDS ORDERED: TRIM/SULFAMETH 160/800 (SEPTRA DS) TAB PO ONE (18:45)
== END 2018-09-06 18:45 | disposition home or self-care (01) ==
LOC: EDUNIT# 16:51 → ER 16:51
DX: N13.2 Hydronephrosis with renal and ureteral calculous obstruction (principal); G43.909 Migraine, unspecified, not intractable, without status migrainosus; Z79.52 Long term (current) use of systemic steroids; Z77.22 Contact with and (suspected) exposure to environmental tobacco smoke (acute) (chronic)
CPT/HCPCS: 36415; 74018; 74176; 80053; 81000; 82150; 83690; 85025; 87088; 96361; 96374; 96375

== ENCOUNTER 2019-06-30 17:58 | Emergency (ER) | payer SELFPAY ==
[~2019-06-30] VITALS: Ht 162.6 cm; Wt 53.1 kg
[~2019-06-30 17:58] MED LIST changes: +ACHD5005 PO; +ONDA4TAB11 PO; +SULF1TAB35 PO
--- NOTE | 2019-06-30 19:05 | ED Cough/URI ---
General Chief Complaint: Cough/Cold/Flu Symptoms Stated Complaint: FLU LIKE SYMPTOMS FOR 2 WEEKS NOW Nursing Triage Note: PT AMBULATE TO TRIAGE WITH C/O GENERALIZED BODY ACHES, N/V/D X2 WEEKS. PT STATES HE WAS SEEN BY THE CLINIC MONDAY AND THIS MORNING FOR SAME C/O. Sepsis Screen: No Definite Risk Source: patient Exam Limitations: no limitations (BRYSON PATTEN) History of Present Illness Date Seen by Provider: Jun 30, 2019 Time Seen by Provider: 18:24 Initial Comments This is a 34 y/o male presents to the ED w/ flu-like sx including productive cough ("yellow-green" mucus), rhinorrhea, generalized weakness, and nasal congestion x2wks. He has also been having associated intermittent N/V/D. Denies any fever. He was seen 4 days ago at [facility] clinic and was given Fluticasone nasal spray, Zofran, and phenylephrin nasal spray. States his sx did not improve so he went to the clinic earlier today and was given Augmentin 875-125mg BID. He has taken the first dose today. Denies any F/Chills, abd pain, ear pain, sore throat, or chest pain. Reports he has been smoking since he was 10 y/o but quit 7 months ago. Denies any ETOH, or any recreational drug use. Denies any chronic medical problems but states that he does not regularly see a doctor. Timing/Duration: week Severity/Quality: mild, productive cough, sputum Prior Episodes/Possible Cause: no prior episodes Modifying Factors: Improves With Other (nasal decongestants improve sx) Associated Symptoms: cough, nasal congestion, nasal drainage, sinus infection (BRYSON PATTEN [facility]) Timing/Duration: week Severity/Quality: productive cough Associated Symptoms: cough, nasal congestion, nasal drainage, sinus infection, sore throat (TEA MITCHELL MD) Allergies and Home Medications Allergies Coded Allergies: No Known Drug Allergies (Unverified , 02/21/09) Home Medications Hydrocodone Bit/Acetaminophen 1 Tab Tab, 1 EACH PO Q4-6HR PRN for PAIN-MODERATE Prescribed by: LELO SOLORIO on 09/06/181818 Ondansetron 4 Mg Tab.rapdis, 4 MG PO Q4H PRN for NAUSEA/VOMITING-2ND LINE Prescribed by: LELO SOLORIO on 09/06/181818 Prednisone 20 Mg Tab, 20 MG PO DAILY Prescribed by: JULIUS KIRBY on 06/19/16 0047 Sulfamethoxazole/Trimethoprim 1 Each Tablet, 1 EACH PO BID PRN Prescribed by: LELO SOLORIO on 09/06/181818 Patient Home Medication List Home Medication List Reviewed: Yes (TEA MITCHELL MD) Review of Systems Review of Systems Constitutional: No chills, No fever; malaise, weakness EENTM: nose congestion; No throat pain, No throat swelling Respiratory: cough; No dyspnea on exertion, No short of breath Cardiovascular: No chest pain, No palpitations Gastrointestinal: No abdominal pain, No constipation; diarrhea, nausea, vomiting Genitourinary: No dysuria, No frequency Musculoskeletal: no symptoms reported Skin: No pruritus, No rash (BRYSON PATTEN) Past Utshatc-Qztqty-Knkuvj Hx Past Med/Social Hx: Reviewed Nursing Past Med/Soc Hx (TEA MITCHELL MD) Patient Social History Alcohol Use: Denies Use Recreational Drug Use: No Smoking Status: Former Smoker Type Used: Cigarettes Former Smoker, Quit: Dec 12, 2018 2nd Hand Smoke Exposure: Yes Recent Foreign Travel: No Contact w/Someone Who Travel: No Recent Infectious Disease Expo: No Recent Hopitalizations: No Physical Abuse: No Sexual Abuse: No Mistreated: No Fear: No (BRYSON PATTEN) Immunizations Up To Date Date of Influenza Vaccine: Jan 29, 2013 (BRYSON PATTEN) Seasonal Allergies Seasonal Allergies: No (BRYSON PATTEN) Past Medical History Surgeries: Yes (CRANIAL CORRECTIVE SURGERY--"BORN WITHOUT A SOFT SPOT") Respiratory: No Cardiac: No Neurological: Yes Headaches /Migraines Genitourinary: No Gastrointestinal: No Musculoskeletal: No Endocrine: No HEENT: No Cancer: No Psychosocial: No Integumentary: No Blood Disorders: No Adverse Reaction/Blood Tranf: No (BRYSON PATTEN) Family Medical History Reviewed Nursing Family Hx (TEA MITCHELL MD) No Pertinent Family Hx (BRYSON PATTEN) Physical Exam Vital Signs - First Documented 06/30/19 18:06 Temp 36.9 Pulse 87 Resp 17 B/P (MAP) 156/81 (106) O2 Delivery Room Air (TEA MITCHELL MD) Capillary Refill : Less Than 3 Seconds [facility] Height: 5'4.00" Weight: 112lbs. 12oz. [id number]; 20.00 BMI Method:Stated General Appearance: WD/WN, no apparent distress, thin HEENT: PERRL/EOMI, TMs normal (copious amount of cerumen in L ear ), pharyngeal erythema; No tonsillar exudate; other Neck: full range of motion, normal inspection Respiratory: no respiratory distress, no accessory muscle use, other (coarse breath sounds diffusely ) Cardiovascular: regular rate, rhythm, no edema, no gallop, no JVD, no murmur Gastrointestinal: normal bowel sounds, non tender, soft, no organomegaly, no pulsatile mass Neurologic/Psychiatric: alert, oriented x 3 Skin: normal color, warm/dry Lymphatic: no adenopathy ([facility] General Appearance: WD/WN, no apparent distress Neck: full range of motion, normal inspection Respiratory: no respiratory distress, no accessory muscle use, wheezing (a few scattered), expiration, other (coarse breath sounds diffusely ) Neurologic/Psychiatric: alert, oriented x 3 Skin: normal color, warm/dry (TEA MITCHELL MD) Progress/Results/Core Measures Suspected Sepsis Recent Fever Within 48 Hours: No Infection Criteria Present: None New/Unexplained Altered Menta: No Sepsis Screen: No Definite Risk SIRS Temperature: Pulse: 87 Respiratory Rate: 17 Blood Pressure 156 /81 Mean: 106 ([facility] Results/Orders Micro Results Microbiology 06/30/19 Influenza Types A,B Antigen (KANA) - Final, Complete (TEA MITCHELL MD) My Orders Orders - TEA MITCHELL MD Chest Pa/Lat (2 View) (06/30/19 18:41) Dexamethasone Injection (Decadron Inject (06/30/19 19:15) (TEA MITCHELL MD) Medications Given in ED Current Medications Medications Dose Ordered Sig/Ingrid Route Start Time Stop Time Status Last Admin Dose Admin Dexamethasone Sodium Phosphate 10 mg ONCE ONCE IM 06/30/19 19:15 06/30/19 19:16 DC 06/30/19 19:15 10 MG (TEA MITCHELL MD) Vital Signs/I&O 06/30/19 06/30/19 18:06 18:12 Temp 36.9 Pulse 87 Resp 17 B/P (MAP) 156/81 (106) O2 Delivery Room Air Room Air (TEA MITCHELL MD) Vital Signs/I&O Capillary Refill : Less Than 3 Seconds (BRYSON PATTEN [facility]) Blood Pressure Mean: 106 Progress Note : Time: 18:25 Progress Note Seen and evaluated. Rapid flu test ordered. Will order CXR to r/u PNA. Pt already on appropriate ABX and dosage, so will have him continue with that, will order a shot of Decadron as pt has long history of tobaccoism. @1900: Flu test was negative. CXR is negative for PNA. Plan for d/c was discussed w/ pt. Instructed pt to f/u w/ PCP or RER if worsening sx. Pt agrees with plan (BRYSON PATTEN [facility]) Progress Note : Progress Note I have seen and evaluated the patient and agree with above except as indicated. I have directed the plan of care. He is here with upper respiratory symptoms including cough and congestion as well as some vomiting. Seen by primary care today and initiated on Augmentin as well as ondansetron. Evaluation as above. Plan to check influenza is green and chest x-ray. This was negative on both accounts. Decadron 10 mg IM given. Discharged home with return precautions. Patient verbalize understanding instructions and agreement with plan. (TEA MITCHELL MD) Diagnostic Imaging Diagonstic Imaging: Xray Plain Films/CT/US/NM/MRI: chest Comments [facility]. [place], [place] NAME: JULIUS MACIEL Nico MED REC#: [id number] PT STATUS: REG ER : 1985 PHYSICIAN: TEA MITCHELL MD ADMIT DATE: 06/30/19/ER Signed Date of Exam:06/30/19 CHEST PA/LAT (2 VIEW) CHEST PA/LAT (2 VIEW) Indication: Cough and congestion Comparison: 06/18/2016 Findings: No pulmonary mass or consolidation. No pleural effusion or pneumothorax. Normal heart size and mediastinal contours. Impression: No acute cardiopulmonary process. Dictated by: Dictated on workstation # [id number] Dict: 06/30/191914 Trans: 06/30/191915 [facility] [id number] Interpreted by: EULOGIO BRODERICK MD Electronically signed by: EULOGIO BRODERICK MD 06/30/191915 (BRYSON PATTEN [facility]) Diagonstic Imaging: Xray Plain Films/CT/US/NM/MRI: chest (TEA MITCHELL MD) Departure Impression Primary Impression: Bacterial upper respiratory infection Disposition: HOME, SELF-CARE Condition: Stable Departure-Patient Inst. Decision time for Depature: 19:29 (TEA MITCHELL MD) Referrals: [facility] (PCP/Family) Primary Care Physician Patient Instructions: Bacterial Upper Respiratory Infection, Adult (DC) Add. Discharge Instructions: All discharge instructions reviewed with patient and/or family. Voiced understanding. You may take Tylenol/acetaminophen 1000 mg every 8 hours as needed for fever or pain. You may take ibuprofen 600 mg every 8 hours as needed for fever or pain. Drink plenty of fluids. Follow-up with your DrKel in a few days for recheck. Arza nue previously prescribed medicines. Return for worse pain, fever, vomiting, weakness, breathing problems or other concerns as needed. BRYSON PATTEN Jun 30, 2019 19:05 TEA MITCHELL MD Jun 30, 2019 19:30
[2019-06-30] MEDS ORDERED: DEXAMETHASONE 10 MG/ML (DECADRON) 1 ML VIAL IM ONE (19:15)
--- NOTE | 2019-06-30 19:17 | Diagnostic Imaging Report ---
CHEST PA/LAT (2 VIEW) Indication: Cough and congestion Comparison: 06/18/2016 Findings: No pulmonary mass or consolidation. No pleural effusion or pneumothorax. Normal heart size and mediastinal contours. Impression: No acute cardiopulmonary process. Dictated by: Dictated on workstation # [id number]
[2019-06-30 19:40] VITALS: BP 129/78
== END 2019-06-30 19:39 | disposition home or self-care (01) ==
LOC: EDUNIT# 17:58 → ER 17:59
DX: J06.9 Acute upper respiratory infection, unspecified (principal); B96.89 Other specified bacterial agents as the cause of diseases classified elsewhere; Z87.891 Personal history of nicotine dependence; Z79.52 Long term (current) use of systemic steroids; Z77.22 Contact with and (suspected) exposure to environmental tobacco smoke (acute) (chronic)
CPT/HCPCS: 71046; 87804; 96372

== ENCOUNTER 2020-09-19 23:37 | Emergency (ER) | payer SELFPAY | END 2020-09-20 00:12 | disposition left against medical advice (07) | LOC: EDUNIT# 23:37 → ER 23:38 | DX: G43.909 Migraine, unspecified, not intractable, without status migrainosus (principal) ==

== ENCOUNTER 2023-01-10 03:58 | Emergency (ER) | payer OTHER ==
[~2023-01-10] VITALS: Ht 163 cm; Wt 53.1 kg
[~2023-01-10 03:58] MED LIST changes: -SULF1TAB35 PO; +SULF1TAB38 PO
[2023-01-10] MEDS ORDERED: LACTATED RINGERS 1,000 ML 1,000 ML IV ONE (04:30)
[2023-01-10] MEDS ORDERED: ONDANSETRON INJECTION 4 MG/2 ML (SDV) IVP ONE (04:30)
[2023-01-10] MEDS ORDERED: fentaNYL INJECTION 100 MCG/2 ML VIAL IVP ONE (04:30)
[2023-01-10 04:36] LABS: BILIRUBIN,URINE 1+ (NEGATIVE); CLARITY,URINE TURBID; COLOR,URINE AMBER; GLUCOSE, URINE (UA) NEGATIVE (NEGATIVE); KETONES,URINE TRACE (NEGATIVE); LEUKOCYTE ESTERASE ,URINE 2+ (NEGATIVE); NITRITE,URINE NEGATIVE (NEGATIVE); PH,URINE 5.5 (5-9); PROTEIN,URINE 3+ (NEGATIVE); RBC,URINE 50-100 /HPF
[2023-01-10 04:37] LABS: BASOPHILS % (AUTO) 0 % (0-10); EOSINOPHILS % (AUTO) 0 % (0-10); HEMATOCRIT 43 % (40-54); LYMPHOCYTES # (AUTO) 1.4 10^3/uL (1.0-4.0); MEAN CORPUSCULAR HEMOGLOBIN 30 pg (25-34); MEAN CORPUSCULAR HGB CONC 35 g/dL (32-36); MEAN CORPUSCULAR VOLUME 87 fL (80-99); MONOCYTES # (AUTO) 1.9 10^3/uL (0.0-1.0); MONOCYTES % (AUTO) 14 % (0-12); NEUTROPHILS # (AUTO) 9.8 10^3/uL (1.8-7.8); NEUTROPHILS % (AUTO) 74 % (42-75); WHITE BLOOD COUNT 13.2 10^3/uL (4.3-11.0)
[2023-01-10 04:37] LABS: BACTERIA,URINE MODERATE /HPF; URINE OTHER FEW TRANS CELLS /HPF; WBC,URINE 50-100 /HPF
--- NOTE | 2023-01-10 04:37 | ED General ---
General Chief Complaint: - Reproductive Stated Complaint: DIZZY,PEEING BLOOD Nursing Triage Note: c/o bloody urine, shakey/nausea x3hrs. Source of Information: Patient Exam Limitations: No Limitations (JULIUS GENAO MD) History of Present Illness Date Seen by Provider: Jan 10, 2023 Time Seen by Provider: 04:08 Initial Comments This 37-year-old gentleman presents to the emergency room by private vehicle with primary complaints of generalized abdominal pain, dysuria, urinary urgency, and urinary frequency with small volume voids. He also noted some bloody dribble when trying to use the bathroom. He has a history of prior ureteral stone. Symptoms started last night around 1700 when he was feeling nauseated at work. He was feeling ill enough that he needed to leave work. He went home and ate soup and drank Sprite. Around 0030 he developed dysuria and frequency with small volume voids. This is when he also noticed the blood from his urethra. He denies any fevers. Pain is most intense in the lower abdomen and is presently rated as 5/10. He is diffusely tender in the abdomen with tenderness greatest in the left lower quadrant. (JULIUS GENAO MD) Allergies and Home Medications Allergies Coded Allergies: No Known Drug Allergies (Unverified , 02/21/09) Patient Home Medication List Home Medication List Reviewed: Yes (JULIUS GENAO MD) Discontinued Medications Hydrocodone Bit/Acetaminophen (Lortab 5 Mg Tablet) 1 Tab Tab, 1 EACH PO Q4-6HR PRN for PAIN-MODERATE Discontinued Reason: No Longer Taking Prescribed by: LELO SOLORIO on 09/06/181818 Last Action: Discontinued Ondansetron (Ondansetron Odt) 4 Mg Tab.rapdis, 4 MG PO Q4H PRN for NAUSEA/VOMITING-2ND LINE Discontinued Reason: No Longer Taking Prescribed by: LELO SOLORIO on 09/06/181818 Last Action: Discontinued Prednisone (Prednisone) 20 Mg Tab, 20 MG PO DAILY Discontinued Reason: No Longer Taking Prescribed by: JULIUS KIRBY on 06/19/16 0047 Last Action: Discontinued Sulfamethoxazole/Trimethoprim (Bactrim Ds Tablet) 1 Each Tablet, 1 EACH PO BID PRN Discontinued Reason: No Longer Taking Prescribed by: LELO SOLORIO on 09/06/181818 Last Action: Discontinued Review of Systems Review of Systems Constitutional: no symptoms reported EENTM: no symptoms reported Respiratory: no symptoms reported Cardiovascular: no symptoms reported Gastrointestinal: see HPI Genitourinary: see HPI Musculoskeletal: see HPI Skin: no symptoms reported Psychiatric/Neurological: No Symptoms Reported Hematologic/Lymphatic: No Symptoms Reported Immunological/Allergic: no symptoms reported (JULIUS GENAO MD) Past Utpcfmq-Vhmpkp-Vfhqzr Hx Patient Social History Tobacco Use?: Yes Substance use?: No Alcohol Use?: No Pt feels they are or have been: No (JULIUS GENAO MD) Seasonal Allergies Seasonal Allergies: No (JULIUS GENAO MD) Past Medical History Surgery/Hospitalization HX: crainial sx as baby, headaches Surgeries: Yes (CRANIAL CORRECTIVE SURGERY for craniosynostosis) Respiratory: No Cardiac: No Neurological: Yes Headaches /Migraines Genitourinary: Yes Kidney Stones Gastrointestinal: No Musculoskeletal: No Endocrine: No HEENT: No Cancer: No Psychosocial: No Integumentary: No Blood Disorders: No Adverse Reaction/Blood Tranf: No (JULIUS GENAO MD) Family Medical History No Pertinent Family Hx (JULIUS GENAO MD) Physical Exam Vital Signs Vital Signs - First Documented 01/10/23 04:05 Temp 37.8 Pulse 94 Resp 16 B/P (MAP) 128/91 (103) Pulse Ox 97 O2 Delivery Room Air (DETAR,BELINDA W DO) Vital Signs Capillary Refill : Less Than 3 Seconds (JULIUS GENAO MD) Height, Weight, BMI Height: 5'4.00" Weight: 112lbs. 12oz. 51.900381hh; 19.00 BMI Method:Stated General Appearance: WD/WN, Mild Distress HEENT: PERRL/EOMI, Normal ENT Inspection Neck: Normal Inspection Respiratory: Lungs Clear, Normal Breath Sounds, No Accessory Muscle Use Cardiovascular: No Edema, No Murmur, Tachycardia Gastrointestinal: Normal Bowel Sounds, Soft; No Distended; Tenderness (Diffuse with guarder, most severe in LLQ) Extremity: Normal Inspection, Pedal Edema Neurologic/Psychiatric: Alert, Oriented x3, No Motor/Sensory Deficits, Normal Mood/Affect Skin: Normal Color, Warm/Dry (JULIUS GENAO MD) Progress/Results/Core Measures Suspected Sepsis SIRS Temperature: Pulse: 94 Respiratory Rate: 16 Laboratory Tests 01/10/23 04:26: White Blood Count 13.2H Blood Pressure 128 /91 Mean: 103 Laboratory Tests 01/10/23 04:26: Creatinine 0.88, Platelet Count 122L, Total Bilirubin 2.2H (JULIUS GENAO MD) Results/Orders Lab Results Laboratory Tests Test 01/10/23 04:08 01/10/23 04:26 Range/Units Urine Color LUIZA H Urine Clarity TURBID Urine pH 5.5 5-9 Urine Specific [place] >=1.030 1.016-1.022 Urine Protein 3+ H NEGATIVE Urine Glucose (UA) NEGATIVE NEGATIVE Urine Ketones TRACE H NEGATIVE Urine Nitrite NEGATIVE NEGATIVE Urine Bilirubin 1+ H NEGATIVE Urine Urobilinogen 2.0 < = 1.0 MG/DL Urine Leukocyte Esterase 2+ H NEGATIVE Urine RBC (Auto) 3+ H NEGATIVE Urine RBC 50-100 H /HPF Urine WBC 50-100 H /HPF Urine Crystals NONE /LPF Urine Bacteria MODERATE H /HPF Urine Casts NONE /LPF Urine Mucus NEGATIVE /LPF Urine Other FEW TRANS CELLS /HPF Urine Culture Indicated YES White Blood Count 13.2 H 4.3-11.0 10^3/uL Red Blood Count 4.98 4.30-5.52 10^6/uL Hemoglobin 15.0 13.3-17.7 g/dL Hematocrit 43 40-54 % Mean Corpuscular Volume 87 80-99 fL Mean Corpuscular Hemoglobin 30 25-34 pg Mean Corpuscular Hemoglobin Concent 35 32-36 g/dL Red Cell Distribution Width 13.2 10.0-14.5 % Platelet Count 122 L 130-400 10^3/uL Mean Platelet Volume 9.6 9.0-12.2 fL Immature Granulocyte % (Auto) 0 % Neutrophils (%) (Auto) 74 42-75 % Lymphocytes (%) (Auto) 11 L 12-44 % Monocytes (%) (Auto) 14 H 0-12 % Eosinophils (%) (Auto) 0 0-10 % Basophils (%) (Auto) 0 0-10 % Neutrophils # (Auto) 9.8 H 1.8-7.8 10^3/uL Lymphocytes # (Auto) 1.4 1.0-4.0 10^3/uL Monocytes # (Auto) 1.9 H 0.0-1.0 10^3/uL Eosinophils # (Auto) 0.0 0.0-0.3 10^3/uL Basophils # (Auto) 0.0 0.0-0.1 10^3/uL Immature Granulocyte # (Auto) 0.0 0.0-0.1 10^3/uL Percent Immature Platelet Fraction 2.9 0.0-7.6 % Sodium Level 136 135-145 MMOL/L Potassium Level 3.5 L 3.6-5.0 MMOL/L Chloride Level 102 98-107 MMOL/L Carbon Dioxide Level 26 21-32 MMOL/L Anion Gap 8 5-14 MMOL/L Blood Urea Nitrogen 10 7-18 MG/DL Creatinine 0.88 0.60-1.30 MG/DL Estimat Glomerular Filtration Rate 112 BUN/Creatinine Ratio 11 Glucose Level 101 70-105 MG/DL Calcium Level 8.9 8.5-10.1 MG/DL Corrected Calcium 8.9 8.5-10.1 MG/DL Total Bilirubin 2.2 H 0.1-1.0 MG/DL Aspartate Amino Transf (AST/SGOT) 15 5-34 U/L Alanine Aminotransferase (ALT/SGPT) 14 0-55 U/L Alkaline Phosphatase 52 40-136 U/L Total Protein 6.6 6.4-8.2 GM/DL Albumin 4.0 3.2-4.5 GM/DL Lipase 153 H 8-78 U/L (BELINDA MATOS DO) My Orders Orders - BELINDA MATOS DO Ceftriaxone Iv/Im (Ceftriaxone Iv/Im) (01/10/23 06:15) Neis Bolivar Dna Urine Test (01/10/23 06:07) Chlamydia Trachomatis Urine (01/10/23 06:07) Iohexol Injection (Omnipaque 350 Mg/Ml 1 (01/10/23 06:30) Received Contrast (Hold Metformin- Contr (01/10/23 06:30) Sodium Chloride Flush (Catheter Flush Sy (01/10/23 06:30) Ns (Ivpb) 100 Ml (Sodium Chloride 0.9% 1 (01/10/23 06:30) (BELINDA MATOS DO) Medications Given in ED Current Medications Medications Dose Ordered Sig/Ingrid Route Start Time Stop Time Status Last Admin Dose Admin Ceftriaxone Sodium 1000 mg/ Sodium Chloride 50 ml @ 100 mls/hr ONCE ONCE IV 01/10/23 06:15 01/10/23 06:44 DC 01/10/23 06:13 100 MLS/HR Fentanyl Citrate 50 mcg ONCE ONCE IVP 01/10/23 04:30 01/10/23 04:31 DC 01/10/23 04:29 50 MCG Iohexol 100 ml ONCE ONCE IV 01/10/23 06:30 01/10/23 06:31 DC 01/10/23 06:20 70 ML Lactated Ringer's 1,000 ml @ 0 mls/hr Q0M ONCE IV 01/10/23 04:30 01/10/23 04:31 DC 01/10/23 04:29 0 MLS/HR Ondansetron HCl 4 mg ONCE ONCE IVP 01/10/23 04:30 01/10/23 04:31 DC 01/10/23 04:29 4 MG Sodium Chloride 10 ml NEEDED PRN IV 01/10/23 06:30 01/10/23 06:21 10 ML Sodium Chloride 100 ml ONCE ONCE IV 01/10/23 06:30 01/10/23 06:31 DC 01/10/23 06:20 80 ML (BELINDA MATOS DO) Vital Signs/I&O 01/10/23 04:05 Temp 37.8 Pulse 94 Resp 16 B/P (MAP) 128/91 (103) Pulse Ox 97 O2 Delivery Room Air (BELINDA MATOS DO) Vital Signs/I&O Capillary Refill : Less Than 3 Seconds (JULIUS GENAO MD) Blood Pressure Mean: 103 Progress Note : Time: 05:00 Progress Note Plan was reviewed and urinalysis was ordered at 0408. Patient was interviewed and examined shortly thereafter. Fentanyl was administered for pain control. Patient was hydrated with a 1 L LR bolus. Zofran was given for nausea control. Labs were obtained, reviewed, and interpreted by me. CBC was remarkable for leukocytosis of 13.2. It was notable for bilirubin of 2.2 and lipase of 153. Urinalysis was remarkable for high specific gravity, 50-100 WBC, 50-100 RBC, and moderate bacteria just take urinary tract infection. CT scan was ordered and is pending. (JULIUS GENAO MD) Progress Note : Progress Note 0600 Patient care transferred at shift change. Labs and presentation discussed. Patient in CT at time of transfer. urine GC and Rocephin ordered. Disposition pending CT 0813 CT returned. Impression is bilateral nephrolithiasis without evidence of obstructive uropathy. There is significant constipation. Fecal impaction at the rectum is not fully excluded. There is minimal prominence of small bowel loops possibly on the basis of enteritis. No bowel obstruction is seen. Patient has been sleeping comfortably in no significant distress since time of transfer. Rocephin was given in the emergency department gonorrhea chlamydia sent to the lab. We will continue to treat for significant urinary tract infection we will also provide lactulose for constipation. Advise increase fiber intake and water. Take all antibiotics as directed. Follow-up with primary care or return for problems or significant decline in overall status. Patient agrees. (BELINDA MATOS DO) Departure Impression Primary Impression: Urinary tract infection Qualified Codes: N30.01 - Acute cystitis with hematuria Additional Impressions: Generalized abdominal pain Elevated lipase Constipation Qualified Codes: K59.00 - Constipation, unspecified Disposition: HOME, SELF-CARE Condition: Improved Departure-Patient Inst. Referrals: [facility] (PCP/Family) Primary Care Physician Patient Instructions: Urinary Tract Infection, Adult (DC), Probiotics, Constipation, Adult ED Scripts Lactulose (Lactulose) 20 Gram/30 Ml Solution 20 GM PO ONCE for 1 Day, #30 ML Prov: BELINDA MATOS DO 01/10/23 Ciprofloxacin HCl (Ciprofloxacin HCl) 500 Mg Tablet 500 MG PO BID for 7 Days, #14 TAB Prov: BELINDA MATOS DO 01/10/23 JULIUS GENAO MD Jan 10, 2023 04:37 BELINDA MATOS DO Jan 10, 2023 06:25
[2023-01-10 04:38] LABS: LYMPHOCYTES % (AUTO) 11 % (12-44); MEAN PLATELET VOLUME 9.6 fL (9.0-12.2); PLATELET COUNT 122 10^3/uL (130-400)
[2023-01-10 04:55] LABS: BILIRUBIN,TOTAL 2.2 MG/DL (0.1-1.0); CALCIUM 8.9 MG/DL (8.5-10.1); CREATININE SERUM 0.88 MG/DL (0.60-1.30); POTASSIUM 3.5 MMOL/L (3.6-5.0); TOTAL PROTEIN 6.6 GM/DL (6.4-8.2)
[2023-01-10] MEDS ORDERED: cefTRIAXone IV/IM 1,000 MG in NS (IVPB) 50 ML 50 ML IV ONE (06:15)
[2023-01-10] MEDS ORDERED: CATHETER FLUSH 10 ML SYR IV PRN (06:30)
[2023-01-10] MEDS ORDERED: NS 100 ML (IVPB) BAG IV ONE (06:30)
[2023-01-10] MEDS ORDERED: IOHEXOL 350 MG/ML 100 ML (OMNIPAQUE 350) VIAL IV ONE (06:30)
[2023-01-10] MEDS ORDERED: HOLD METFORMIN - RECEIVED CONTRAST 20 ML VIAL IV SCH (06:30)
--- NOTE | 2023-01-10 08:10 | Diagnostic Imaging Report ---
PROCEDURE: CT abdomen and pelvis with contrast. TECHNIQUE: Multiple contiguous axial images were obtained through the abdomen and pelvis after administration of intravenous contrast. Auto Exposure Controls were utilized during the CT exam to meet ALARA standards for radiation dose reduction. All CT scans use one or more of the following dose optimizing techniques: automated exposure control, MA and/or KvP adjustment based on patient size and exam type or iterative reconstruction. INDICATION: Severe abdominal pain with hematuria and elevated lipase COMPARISON: 09/06/2018 No focal hepatic, gallbladder or splenic abnormality identified. Spleen appears to be unremarkable without evidence of inflammation or fluid collection. There is no evidence of adrenal gland abnormality. There are several nonobstructing punctate stones within the kidneys bilaterally. The largest is in the mid to lower portion of left kidney reaching 0.3 cm in size. There is no evidence of free fluid within the abdomen or pelvis. There is mild diffuse mural prominence of small bowel loops which could be related to enteritis. There is a large amount of colonic stool with significant fecal distention of the rectum. There is no evidence of hydronephrosis or hydroureter. There is mild bulging of L5-S1 disc. IMPRESSION: Bilateral nephrolithiasis without evidence of obstructive uropathy. There is significant constipation. Fecal impaction at the rectum is not fully excluded. There is mural prominence of small bowel loops possibly on the basis of enteritis. No bowel obstruction is seen. Dictated by: Dictated on workstation # [id number]
[2023-01-10] MEDS ORDERED: LACT20SO2 PO (08:18)
[2023-01-10] MEDS ORDERED: CIPR500T5 PO (08:18)
[2023-01-10 08:28] VITALS: BP 131/83
== END 2023-01-10 08:28 | disposition home or self-care (01) ==
LOC: EDUNIT# 03:58 → ER 04:02
DX: N39.0 Urinary tract infection, site not specified (principal); K59.00 Constipation, unspecified; N20.0 Calculus of kidney; R74.8 Abnormal levels of other serum enzymes
CPT/HCPCS: 36415; 74177; 80053; 81000; 83690; 85025; 87077; 87088; 87186; 87491; 87591